=== PATIENT | male | born 1955 | race American Indian/Alaskan Native ===

== ENCOUNTER 2016-12-30 06:52 | Emergency (ER) | payer MEDICARE ==
[2016-12-30 07:27] VITALS: BP 143/95
[2016-12-30] MEDS ORDERED: ZOFRAN IV ONE (11:22)
[2016-12-30] MEDS ORDERED: TORADOL IV ONE (11:22)
[2016-12-30] MEDS ORDERED: MORPHINE IV ONE ×2 (11:22→14:07)
--- NOTE | 2016-12-30 11:54 | Cat Scan Report ---
CT HEAD WITHOUT CONTRAST: HISTORY: Head injury. Serial contiguous axial images were obtained through the cranium. Intravenous contrast material was not administered. The ventricles are normal in size and appearance. There is no mass effect or midline shift. No areas of abnormally increased or decreased attenuation are seen. No mass lesion is seen. The mastoid air cells and visualized portions of the sinuses are normal. IMPRESSION: Cranial CT scan within normal limits.
--- NOTE | 2016-12-30 11:58 | Cat Scan Report ---
CT FACIAL BONES WITHOUT CONTRAST: HISTORY: Facial injury, pain. TECHNIQUE: Helical CT images with sagittal and coronal CT reformations. FINDINGS: All paranasal sinuses are clear. No sinus wall fracture, fluid level or opacification. The orbital cavities are symmetric and intact. The mandible is intact. The skull base and upper cervical spine demonstrate no evidence for acute injury. IMPRESSION: Unremarkable CT of the facial bones.
--- NOTE | 2016-12-30 11:59 | Cat Scan Report ---
CT SCAN OF THE CERVICAL SPINE: HISTORY: Neck pain, injury. TECHNIQUE: Contiguous 1.25 mm axial images of the cervical spine were obtained. Sagittal and coronal reformatted images. FINDINGS: There is normal alignment of the cervical spine. The body, pedicles and posterior ligaments appear normal. No evidence of fracture or subluxation is seen. Mild multilevel spondylosis is noted. The spinal canal appears normal. The prevertebral soft tissues appear normal. IMPRESSION: Mild cervical spondylosis. No acute process is noted.
--- NOTE | 2016-12-30 13:10 | Emergency Department Report ---
ED Fall HPI - General Chief Complaint: Fall Stated Complaint: FALL/BODY PAIN Time Seen by Provider: 12/30/16 11:16 Source: patient Mode of arrival: Ambulatory - History of Present Illness Initial Comments: 61 year-old male with a past medical history of hypertension, anxiety, depression, chronic back pain, and anxiety since the hospital complaints of fall out of bed this a.m. Patient states his mattresses high off the ground. When he tried to get out of bed he fell striking the left side of his head on a wooden panel on the floor. Patient states he passed out for about 5 minutes. Upon awaking complains he complains of 10/10 throbbing headache, left forehead abrasion, left-sided neck pain, and left periorbital pain. Tetanus is up to date. - Related Data Home Medications Medication Instructions Recorded Confirmed Last Taken Buspirone HCl [busPIRone] 15 mg PO BID 04/09/16 04/09/16 Unknown FLUoxetine HCL [PROzac] 40 mg PO QDAY 04/09/16 04/09/16 Unknown Lisinopril [Zestril TAB] 40 mg PO QDAY 04/09/16 04/09/16 Unknown amLODIPine [Norvasc] 20 mg PO DAILY 04/09/16 04/09/16 Unknown lamoTRIgine [LaMICtal] 200 mg PO QDAY 04/09/16 04/09/16 Unknown traZODone [Desyrel] 100 mg PO DAILY 04/09/16 04/09/16 Unknown Previous Rx's Medication Instructions Recorded Last Taken Type Cyclobenzaprine [Flexeril] 10 mg PO TID PRN #15 tablet 04/09/16 Unknown Rx Amoxicillin 500 mg PO BID #20 capsule 04/23/16 Unknown Rx Ketorolac [Toradol] 10 mg PO Q8H PRN #12 tablet 04/23/16 Unknown Rx risperiDONE [RisperDAL] 2 mg PO QDAY #30 tablet 04/23/16 Unknown Rx Ibuprofen [Motrin] 800 mg PO Q8HR PRN #30 tablet 12/30/16 Unknown Rx oxyCODONE /ACETAMINOPHEN [Percocet 1 tab PO Q6HR PRN #15 tablet 12/30/16 Unknown Rx 5/325] Allergies Allergy/AdvReac Type Severity Reaction Status Date / Time acetaminophen [From Vicodin] Allergy Vomiting Verified 04/09/16 17:44 hydrocodone bitartrate Allergy Vomiting Verified 04/09/16 17:44 [From Vicodin] ED Review of Systems ROS: Stated complaint: FALL/BODY PAIN Other details as noted in HPI Comment: All other systems reviewed and negative Other: Constitutional: No fevers chills Eyes: No eye pain visual changes ENT: No ear pain or throat pain Neck: As per HPI Respiratory: Denies cough wheezing shortness of breath Cardiovascular: Denies chest pain, palpitations, syncope GI: Denies abdominal pain, nausea, vomiting, diarrhea : Denies dysuria Musculoskeletal: Denies back pain Skin: As per HPI Neurologic: Denies focal weakness or numbness Psychiatric: Denies suicidal ideation, hallucinations ED Past Medical Hx - Past Medical History Previous Medical History?: Yes Hx Hypertension: Yes Hx Psychiatric Treatment: Yes (Anxiety & Depression) - Surgical History Past Surgical History?: Yes Additional Surgical History: Chronic back pain with sciatica - Social History Smoking Status: Current Every Day Smoker Substance Use Type: None - Medications Home Medications: Home Medications Medication Instructions Recorded Confirmed Last Taken Type Buspirone HCl [busPIRone] 15 mg PO BID 04/09/16 04/09/16 Unknown History Cyclobenzaprine [Flexeril] 10 mg PO TID PRN #15 tablet 04/09/16 Unknown Rx FLUoxetine HCL [PROzac] 40 mg PO QDAY 04/09/16 04/09/16 Unknown History Lisinopril [Zestril TAB] 40 mg PO QDAY 04/09/16 04/09/16 Unknown History amLODIPine [Norvasc] 20 mg PO DAILY 04/09/16 04/09/16 Unknown History lamoTRIgine [LaMICtal] 200 mg PO QDAY 04/09/16 04/09/16 Unknown History traZODone [Desyrel] 100 mg PO DAILY 04/09/16 04/09/16 Unknown History Amoxicillin 500 mg PO BID #20 capsule 04/23/16 Unknown Rx Ketorolac [Toradol] 10 mg PO Q8H PRN #12 tablet 04/23/16 Unknown Rx risperiDONE [RisperDAL] 2 mg PO QDAY #30 tablet 04/23/16 Unknown Rx Ibuprofen [Motrin] 800 mg PO Q8HR PRN #30 tablet 12/30/16 Unknown Rx oxyCODONE /ACETAMINOPHEN [Percocet 1 tab PO Q6HR PRN #15 tablet 12/30/16 Unknown Rx 5/325] ED Physical Exam - General Limitations: No Limitations - Other Other exam information: General: No limitations, patient is alert in no acute distress Head exam: Atraumatic, normocephalic no forehead abrasion, tenderness to left upper orbital rim Eyes exam: Normal appearance, pupils equal reactive to light, extraocular movements intact ENT: Moist mucous membrane, normal oropharynx Neck exam: Normal inspection, full range of motion, no meningismus nontender, no midline tenderness, left lateral neck muscle tenderness Respiratory exam: Clear to auscultation bilateral, no wheezes, rales, crackles Cardiovascular: Normal rate and rhythm, normal heart sounds Abdomen: Soft, nondistended, and nontender, with normal bowel sounds, no rebound, or guarding Extremity: Full range of motion normal inspection no deformity Back: Normal Inspection, full range of motion, no tenderness Neurologic: Alert, oriented x3, cranial nerves intact, no motor or sensory deficit Psychiatric: normal affect, normal mood Skin: Left forehead abrasion ED Course Vital Signs 12/30/16 12/30/16 07:23 11:26 Temperature 98.8 F Pulse Rate 77 Respiratory 20 16 Rate Blood Pressure 143/95 O2 Sat by Pulse 100 Oximetry - Reevaluation(s) Reevaluation #1: 12/30/16 14:07 After morphine 4 mg 6 mg, Toradol 30 mg pt continues to c/o headache although no acute distress is noted. Additional Morphine 4 mg order prior to discharge ED Medical Decision Making - Radiology Data Radiology results: report reviewed CT head: No acute findings CT facial bones: No acute findings CT cervical spine: Mild cervical spondylosis. No acute findings - Medical Decision Making No signs of acute hemorrhage or fracture. Patient be treated symptomatically for pain. Outpatient follow-up with PMD will be a current - Differential Diagnosis intracranial hemorrhage, concussion, contusion, abrasion, fracture Critical Care Time: No Critical care attestation.: If time is entered above; I have spent that time in minutes in the direct care of this critically ill patient, excluding procedure time. ED Disposition Clinical Impression: Head injury, closed, with brief LOC, Forehead abrasion Disposition: - TO HOME OR SELFCARE Is pt being admited?: No Does the pt Need Aspirin: No Condition: Stable Instructions: Minor Head Injury (ED), Abrasion (ED) Additional Instructions: Tke the medication as prescribed. Return if symptoms worsen. Follow-up with your doctor or with a doctor provided. Prescriptions: Ibuprofen [Motrin] 800 mg PO Q8HR PRN #30 tablet PRN Reason: Pain oxyCODONE /ACETAMINOPHEN [Percocet 5/325] 1 tab PO Q6HR PRN #15 tablet PRN Reason: Pain Referrals: PRIMARY CAREMD [Primary Care Provider] - 2-3 Days YUNIOR MYLES MD [Staff Physician] - 3-5 Days Time of Disposition: 14:09
[2016-12-30] MEDS ORDERED: DILAUDID IV ONE (14:06)
== END 2016-12-30 14:49 | disposition home or self-care (01) ==
LOC: ED 06:52
DX: S00.81XA Abrasion of other part of head, initial encounter (principal); I10 Essential (primary) hypertension; F17.200 Nicotine dependence, unspecified, uncomplicated; W06.XXXA Fall from bed, initial encounter; Y93.9 Activity, unspecified; Y92.9 Unspecified place or not applicable; Y99.9 Unspecified external cause status
CPT/HCPCS: 70450; 70486; 72125; 96374; 96375; 96376; 99283; J1885; J2270; J2405

== ENCOUNTER 2017-06-20 17:04 | Emergency (ER) | payer MEDICARE | END 2017-06-20 18:00 | disposition left against medical advice (07) | LOC: ED 17:04 | DX: I10 Essential (primary) hypertension (principal); Z53.21 Procedure and treatment not carried out due to patient leaving prior to being seen by health care provider ==